=== PATIENT | male | born 1960 | race Two or more races ===

== ENCOUNTER 2024-03-31 09:40 | Day surgery (SDC) | payer BC ==
[~2024-03-31] VITALS: Ht 165.1 cm; Wt 72.6 kg
[2024-03-31] MEDS ORDERED: NITROGLYCERIN 0.4 MG/TAB BOTTLE ONE (10:28)
[2024-03-31] MEDS ORDERED: IOHEXOL-350 100 ML VIAL IV ONE (10:28)
[2024-03-31] MEDS ORDERED: CT SWABBABLE VALVE TRANS SET 1 EA INFUS.SET MC ONE (10:28)
[2024-03-31] MEDS ORDERED: IV NS 0.9% 250 ML IV ONE (10:29)
[2024-03-31 10:36] VITALS: BP 115/68
[2024-03-31] MEDS: NITROGLYCERIN 0.4 MG/TAB BOTTLE SL ONE (10:36)
[2024-03-31] MEDS: METOPROLOL TARTRATE INJ 5 MG/5 ML AMPUL IVP PRN (10:36)
== END 2024-03-31 10:53 | disposition home or self-care (01) ==
LOC: CT 09:40
PROVIDERS: ATTEND Internal Medicine Interventional Cardiology
DX: I25.10 Atherosclerotic heart disease of native coronary artery without angina pectoris (principal); R07.9 Chest pain, unspecified
CPT/HCPCS: 75574; J7050; Q9967